=== PATIENT | female | born 1995 | race Caucasian/White ===

== ENCOUNTER 2017-08-17 15:14 | Inpatient (IN) | payer MEDICAID, OTHER ==
[~2017-08-17] VITALS: Ht 160 cm; Wt 68.0 kg
[2017-08-17 15:31] VITALS: BP 112/59; PULSE 69; RESP 18; Ht 160 cm; Wt 68.0 kg
[2017-08-17] MEDS ORDERED: LIDOCAINE 1% (MPF) 30 ML INJ INJ PRN (19:30)
[2017-08-17] MEDS ORDERED: OXYTOCIN 30 UNITS/LR 500 ML IV SCH ×2 (19:30)
[2017-08-17] MEDS ORDERED: MISOPROSTOL 200 MCG TAB PR PRN (19:30)
[2017-08-17] MEDS ORDERED: METHYLERGONOVINE 0.2 MG INJ IM PRN (19:30)
[2017-08-17] MEDS ORDERED: HYDROCODONE/APAP (5/325) TAB PO PRN (19:30)
[2017-08-17] MEDS ORDERED: BUTORPHANOL 2 MG INJ IV PRN ×2 (19:30)
[2017-08-17] MEDS ORDERED: IBUPROFEN 600 MG TAB PO PRN (19:30)
[2017-08-17] MEDS ORDERED: OXYTOCIN 30 UNITS/LR 500 ML IV PRN (19:30)
[2017-08-17] MEDS ORDERED: CARBOPROST 250 MCG INJ IM PRN (19:30)
[2017-08-17] MEDS: LACTATED RINGER'S 1,000 ML IV SCH ×2 (20:31→21:28)
[2017-08-17 20:55] LABS: BASOPHILS % 0.1 % (0.0-2.0); EOSINOPHILS % 0.1 % (0.0-7.0); HEMATOCRIT 36.9 % (37.0-47.0); HEMOGLOBIN 12.9 g/dl (12.0-16.0); LYMPHOCYTES # 1.2 10^3/ul (0.8-2.9); LYMPHOCYTES % 9.2 % (15.0-51.0); MEAN CORPUSCULAR HEMOGLOBIN 30.7 pg (29.0-33.0); MEAN CORPUSCULAR VOLUME 87.9 fl (82.0-101.0); MEAN PLATELET VOLUME 10.1 fl (7.4-10.4); MONOCYTE # 0.6 10^3/ul (0.3-0.9); MONOCYTES % 4.8 % (0.0-11.0); NEUTROPHIL # 11.4 10^3/ul (1.6-7.5); NEUTROPHILS % 85.4 % (39.0-77.0); PLATELET COUNT 202 10^3/UL (140-415); RED CELL DISTRIBUTION WIDTH 15.1 % (11.5-14.5); WHITE BLOOD COUNT 13.3 10^3/ul (4.8-10.8)
[2017-08-17 21:25] LABS: INR 0.83; PROTIME 11.5 Sec (11.9-14.9); PT RATIO 0.9
[2017-08-17] MEDS ORDERED: MINERAL OIL LIGHT 10 ML VIAL TOP ONE (21:30)
[2017-08-17] MEDS ORDERED: FENTAnyl 2MCG/ML-ROPIV 0.2% 100 ML ONE (21:51)
[2017-08-18] MEDS ORDERED: OXYTOCIN 30 UNITS/LR 500 ML IV SCH (00:30)
[2017-08-18] MEDS ORDERED: DEXTROSE 5%-LR 1,000 ML IV PRN (01:30)
[2017-08-18] MEDS: LACTATED RINGER'S 1,000 ML IV SCH (04:28)
[2017-08-18] MEDS ORDERED: HYDROmorphONE 0.5 MG/0.5 ML SYG IV PRN ×2 (04:30)
[2017-08-18] MEDS ORDERED: FENTAnyl 2MCG/ML-ROPIV 0.2% 100 ML BAG EPI SCH (04:30)
[2017-08-18] MEDS ORDERED: ONDANSETRON 4 MG INJ IV PRN (04:30)
[2017-08-18] MEDS ORDERED: KETOROLAC 30 MG INJ IV PRN (04:30)
[2017-08-18] MEDS ORDERED: DIPHENHYDRAMINE 50 MG INJ IV PRN (04:30)
[2017-08-18] MEDS ORDERED: NALOXONE (0.4 MG/ML) INJ IV PRN (04:30)
--- NOTE | 2017-08-18 08:44 | LDN ---
Date/Time of Note Date/Time of Note DATE: 08/18/17 TIME: 08:42 Delivery Summary of a viable baby girl weighing 3120 grams or 6# 14 oz, 20" long, and with Apgars of 9/9. Weeks of Gestation 38w 6d Placenta Delivered: Spontaneously Meconium: Light Episiotomy: No Perineal laceration: 1 Laceration repair: First degree perineal laceration and a left labial laceration repaired with 3-0 chromic. Anesthesia type: Epidural Estimated blood loss: 150 Sponge & Needle done & correct: Yes All needle counts correct: Yes Any foreign bodies felt in the: No (vagina) Problems: Infant Delivery Information Sex Infant Sex: female Apgars 1 Minute: 9 5 Minute: 9 Suctioning Nose & mouth suctioned at kasie: Yes Delee suction performed: No Umbilical Cord Umbilical cord with: 3 Vessels Cord presentations: nuchal cord Nuchal cord present X: 1 Cord Blood was obtained: Yes Mother & Baby Disposition Disposition Mom & Baby to Maternity; Good: Yes Baby to NICU: No ONEYDA MEADOWS MD Aug 18, 2017 08:44
--- NOTE | 2017-08-18 08:49 | HP ---
Date/Time of Note Date/Time of Note DATE: 08/18/17 TIME: 08:44 OB - History Hx of Present Free Text/Dictation 21 y.o. G1 came in active labor and progressed on her own without ever needing pitocin. Chief Complaint: Labor Estimated Due Date: Aug 25, 2017 : 1 Para: 0 Care: Good Care Ultrasounds: Normal mid trimester US Obstetrical Complications: None Medical Complications: None Past Family/Social History * Past Medical, Surgical, Family and Obstetric Histories reviewed from chart. Blood Type: A+ Rubella: immune RPR/VDRL: Negative GBS Status: Negative HBsAG: Negative OB Admission Exam Vital Signs Vital Signs Vital Signs Date Time Temp Pulse Resp B/P Pulse Ox O2 Delivery O2 Flow Rate FiO2 08/17/17 15:31 98.3 69 18 112/59 96 Room Air Physical Exam HEENT: WNL Heart: Rhythm Normal Lungs: Clear Abdomen: WNL Extremities: Normal Reflexes: Normal Cervical Dilatation: 3cm Effacement: 75% Station: -2 Membranes: Intact Heart Rate: 140's Accelerations: Accelerations Present Decelerations: No Decelerations Varibility: Moderate Contractions on Admission: < 5 Minutes Apart Intensity: Moderate Last 72 hourBlood Glucose Bedside Glucose - 72 Hours Test 08/18/17 00:15 08/18/17 02:36 08/18/17 04:33 08/18/17 06:42 Bedside Glucose 75mg/dL (70-220) 101mg/dL (70-220) 75mg/dL (70-220) 99mg/dL (70-220) Last 72 hours Lab Results CBC & BMP 08/17/17 20:20 OB Assessment/Plan Reason for admission: active labor Plan: Expectant Management ONEYDA MEADOWS MD Aug 18, 2017 08:49
[2017-08-18] MEDS ORDERED: MISOPROSTOL 200 MCG TAB PR PRN (09:00)
[2017-08-18] MEDS ORDERED: CARBOPROST 250 MCG INJ IM PRN (09:00)
[2017-08-18] MEDS ORDERED: METHYLERGONOVINE 0.2 MG INJ IM PRN (09:00)
[2017-08-18] MEDS ORDERED: OXYTOCIN 30 UNITS/LR 500 ML IV PRN (09:00)
[2017-08-18] MEDS ORDERED: LANOLIN 7 GM TUBE TOP PRN (09:00)
[2017-08-18] MEDS ORDERED: HYDROCODONE/APAP (5/325) TAB PO PRN (09:00)
[2017-08-18 10:35] VITALS: BP 114/67; PULSE 64; RESP 22
[2017-08-18 12:00] VITALS: BP 111/68; PULSE 66; RESP 18
[2017-08-18] MEDS: IBUPROFEN 600 MG TAB PO SCH ×3 (12:04→23:51)
[2017-08-18] MEDS: LACTATED RINGER'S 1,000 ML IV* SCH ×2 (13:46→16:39)
[2017-08-18] MEDS ORDERED: BENZOCAINE 20% 56 ML SPRAY TOP PRN (14:30)
[2017-08-18] MEDS ORDERED: WITCH HAZEL/GLYCERIN PAD PR PRN (14:30)
[2017-08-18 16:00] VITALS: BP 99/54; PULSE 75; RESP 18
[2017-08-18 20:00] VITALS: BP 97/55; PULSE 80; RESP 18
[2017-08-19 04:27] VITALS: BP 100/55; PULSE 71; RESP 18
[2017-08-19] MEDS: LACTATED RINGER'S 1,000 ML IV* SCH ×2 (04:30→08:39)
[2017-08-19] MEDS: IBUPROFEN 600 MG TAB PO SCH ×4 (05:35→23:36)
[2017-08-19 07:46] LABS: BASOPHILS % 0.1 % (0.0-2.0); EOSINOPHILS # 0.1 10^3/ul (0.0-0.5); EOSINOPHILS % 0.6 % (0.0-7.0); HEMOGLOBIN 10.9 g/dl (12.0-16.0); LYMPHOCYTES # 3.1 10^3/ul (0.8-2.9); LYMPHOCYTES % 26.9 % (15.0-51.0); MEAN CORPUSCULAR HEMOGLOBIN 30.4 pg (29.0-33.0); MEAN CORPUSCULAR HGB CONC 34.1 g/dl (32.0-37.0); MEAN CORPUSCULAR VOLUME 89.1 fl (82.0-101.0); MEAN PLATELET VOLUME 10.1 fl (7.4-10.4); MONOCYTE # 0.9 10^3/ul (0.3-0.9); NEUTROPHIL # 7.4 10^3/ul (1.6-7.5); NEUTROPHILS % 64.1 % (39.0-77.0); PLATELET COUNT 171 10^3/UL (140-415); RED BLOOD COUNT 3.59 10^6/ul (4.20-5.40); RED CELL DISTRIBUTION WIDTH 15.7 % (11.5-14.5); WHITE BLOOD COUNT 11.5 10^3/ul (4.8-10.8)
[2017-08-19 08:10] VITALS: BP 90/58; PULSE 69; RESP 16
--- NOTE | 2017-08-19 15:53 | PN ---
Date/Time of Note Date/Time of Note DATE: 08/19/17 TIME: 15:51 OB Subjective Subjective Subjective no c/o OB Objective Objective Objective vss afebrile fundus firm lochia min calf neg for tendernes OB Assessment/Plan Other Assessment: stable Other plan: d/s home in am REMY LICEA MD Aug 19, 2017 15:53
[2017-08-19 17:49] VITALS: BP 106/55; PULSE 72; RESP 18
[2017-08-19 20:20] VITALS: BP 117/74; PULSE 80; RESP 18
[2017-08-20 05:11] VITALS: BP 110/66; PULSE 66; RESP 18
[2017-08-20] MEDS: LACTATED RINGER'S 1,000 ML IV* SCH ×4 (05:12→14:42)
[2017-08-20] MEDS: IBUPROFEN 600 MG TAB PO SCH ×3 (06:00→17:28)
[2017-08-20 08:00] VITALS: BP 117/70; PULSE 80; RESP 18
[2017-08-20] MEDS ORDERED: DIPHTH/TET/ACEL PERTUSS (ADULT) 0.5 ML VIAL IM* ONE (09:00)
--- NOTE | 2017-08-20 13:24 | PD.PPDC ---
[employer] Discharge Instruction Diagnosis Final Diagnosis: s/p normal vaginal delivery Condition Patient Condition: Good Diet Diet: Special Diet Activity/Restrictions Activity: May Shower Restrictions: No Sexual Activity Nothing in the Vagina No [place] No Tampons, douche Follow-up Follow-up with Physician: 6, Week/Weeks Return to clinic for HOME IM[employer]OVEMENT [employer]OR Instructions: Fever greater than 101 Chills Worsening abdominal pain Excessive Vaginal Bleeding More than 2 pads per hour Unable to tolerate diet OB Instructions: Breast Tenderness Depression Blurried Vision Headache REMY LICEA MD Aug 20, 2017 13:24
--- NOTE | 2017-08-20 13:30 | DS ---
Date/Time of Note Date/Time of Note DATE: 08/20/17 TIME: 13:29 Obstetrical Discharge Record Final Diagnosis Final Diagnosis: Term delivered Vaginal Delivery Obstetrical Delivery: Laceration, Repaired Complications Augmentation: Yes Rupture of Membranes: No Condition on Discharge Physical Assessment Last Vitals: vss afebrile Voiding: Yes Bowel Movement: Yes Breast: Soft, non-tender Fundus: Firm Abdomen and Incision: n/a Calf Tenderness: No Patient Condition: Stable REMY LICEA MD Aug 20, 2017 13:30
[2017-08-20 16:08] VITALS: BP 107/66; PULSE 75; RESP 16
== END 2017-08-20 18:12 | disposition home or self-care (01) | DRG 775 ==
LOC: OBT 15:14 → L-D 15:14 → OBT 19:30 → PP1 08-18 10:44
PROVIDERS: ADMIT Obstetrics & Gynecology; ATTEND Obstetrics & Gynecology
PROC: 10E0XZZ Delivery of Products of Conception, External Approach (ICD-10-PCS; principal; 2017-08-18)
PROC: 0HQ9XZZ Repair Perineum Skin, External Approach (ICD-10-PCS; 2017-08-18)
PROC: 3E033VJ Introduction of Other Hormone into Peripheral Vein, Percutaneous Approach (ICD-10-PCS; 2017-08-18)
DX: O69.81X0 Labor and delivery complicated by cord around neck, without compression, not applicable or unspecified (principal); O70.0 First degree perineal laceration during delivery; Z3A.38 38 weeks gestation of pregnancy; Z37.0 Single live birth
CPT/HCPCS: 62319; 82947; 82962; 85025; 85610; 85730; 86592; 86900; 86901; 87340; 90715; G0463; J0595; J2590; J3010; J7120

== ENCOUNTER 2018-09-16 20:38 | Inpatient (IN) | payer OTHER ==
[~2018-09-16] VITALS: Ht 160 cm; Wt 59.0 kg
[2018-09-16 20:41] VITALS: Ht 160 cm; Wt 59.0 kg
[2018-09-16] MEDS ORDERED: FAMOTIDINE 20 MG TAB PO ONE (21:00)
[2018-09-16] MEDS ORDERED: LIDOCAINE/MYLANTA 40 ML BTL PO ONE (21:00)
[2018-09-16] MEDS ORDERED: SOD CHLORIDE 0.9% 1,000 ML IV ONE (22:30)
--- NOTE | 2018-09-16 22:43 | ERD ---
ER Documentation Chief Complaint Chief Complaint sharp AP x1 day w/ burping/vomiting, worse after eating. no diarrhea/fever HPI 22-year-old female patient with a past medical history of gallstones presents to ED complaining of epigastric pain that started yesterday. Patient reports that she feels like she is burping more frequently as well as having a few episodes of nonbilious nonbloody vomiting. Patient reports that her pain is worse with eating. Denies any fever, chills, nausea, diarrhea, neck stiffness, constipation, dysuria. ROS All systems reviewed and are negative except as per history of present illness. Medications Home Meds Active Scripts Acetaminophen* (Tylophen*) 500 Mg Capsule, 500 MG PO Q6H PRN for PAIN LEVEL 7- 10, #20 TAB Prov:JAYE ISRAEL 09/18/18 Allergies Allergies: Coded Allergies: No Known Allergy (Unverified , 08/17/17) PMhx/Soc Medical and Surgical Hx: pt denies Medical Hx, pt denies Surgical Hx Hx Alcohol Use: No Hx Substance Use: No Hx Tobacco Use: No Smoking Status: Never smoker Physical Exam Vitals Vital Signs Date Temp Pulse Resp B/P (MAP) Pulse Ox O2 O2 Flow FiO2 Time Delivery Rate 09/16/18 98.5 98 16 121/58 97 20:41 (79) Physical Exam Const: [id number], well-nourished. In no acute distress. Head: Atraumatic, normocephalic Eyes: Normal Conjunctiva without injection. No purulent discharge. ENT: Normal external ear, nose. Moist oropharynx without tonsillar exudates. Non-erythematous pharynx. Uvula midline. No drooling. No trismus. Neck: No cervical midline tenderness. Full range of motion. No meningismus. No cervical lymphadenopathy. No JVD. Resp: Clear to auscultation bilaterally. No wheezing, rhonchi, rales, or crackles. No accessory muscle use. No retractions. Cardio: Regular rate and rhythm. No murmurs, rubs or gallops. Abd: Soft, epigastric tenderness, non distended. Normal bowel sounds. No palpable masses. No rebound tenderness. No guarding. Negative McBurney's poi nt. Negative psoas sign. Negative obturator sign. Skin: No petechiae or rashes Back: No midline tenderness. No CVA tenderness. Ext: No cyanosis, or edema. Neur: Awake and alert. Normal gait. Normal coordination. Psych: Normal Mood and Affect Results 24 hrs Laboratory Tests Test 09/16/18 21:00 09/16/18 21:01 Sodium Level 142 mmol/L Potassium Level 3.8 mmol/L Chloride Level 101 mmol/L Carbon Dioxide Level 29 mmol/L Anion Gap 12 Blood Urea Nitrogen 12 mg/dl Creatinine 0.53 mg/dl Est Glomerular Filtrat Rate mL/min > 60 mL/min Glucose Level 92 mg/dl Calcium Level 9.8 mg/dl Total Bilirubin 0.5 mg/dl Direct Bilirubin 0.00 mg/dl Indirect Bilirubin 0.5 mg/dl Aspartate Amino Transf (AST/SGOT) 399 IU/L Alanine Aminotransferase (ALT/SGPT) 199 IU/L Alkaline Phosphatase 191 IU/L Total Protein 7.8 g/dl Albumin 4.7 g/dl Globulin 3.10 g/dl Albumin/Globulin Ratio 1.51 Lipase 12597 U/L White Blood Count 12.4 10^3/ul Red Blood Count 4.59 10^6/ul Hemoglobin 13.9 g/dl Hematocrit 40.4 % Mean Corpuscular Volume 88.0 fl Mean Corpuscular Hemoglobin 30.3 pg Mean Corpuscular Hemoglobin Concent 34.4 g/dl Red Cell Distribution Width 12.8 % Platelet Count 228 10^3/UL Mean Platelet Volume 9.0 fl Immature Granulocytes % 0.200 % Neutrophils % 78.6 % Lymphocytes % 13.8 % Monocytes % 7.0 % Eosinophils % 0.2 % Basophils % 0.2 % Nucleated Red Blood Cells % 0.0 /100WBC Immature Granulocytes # 0.020 10^3/ul Neutrophils # 9.8 10^3/ul Lymphocytes # 1.7 10^3/ul Monocytes # 0.9 10^3/ul Eosinophils # 0.0 10^3/ul Basophils # 0.0 10^3/ul Nucleated Red Blood Cells # 0.0 10^3/ul Urine Color YELLOW Urine Clarity CLEAR Urine pH 6.0 Urine Specific [place] 1.006 Urine Ketones NEGATIVE mg/dL Urine Nitrite NEGATIVE mg/dL Urine Bilirubin NEGATIVE mg/dL Urine Urobilinogen 1+ mg/dL Urine Leukocyte Esterase NEGATIVE Cale/ul Urine Hemoglobin NEGATIVE mg/dL Urine Glucose NEGATIVE mg/dL Urine Total Protein NEGATIVE mg/dl POC Beta HCG, Qualitative NEGATIVE Current Medications Medications Dose Sig/Blaire Start Time Status Last (Trade) Ordered Route PRN Stop Time Admin Dose Reason Admin 40 ml ONCE ONCE 09/16/18 DC 09/16/18 Miscellaneous PO 21:00 09/16/18 21:03 Medication 21:01 (Gi Cocktail (2)) Famotidine 20 mg ONCE ONCE 09/16/18 DC 09/16/18 (Pepcid) PO 21:00 09/16/18 21:03 21:01 Sodium 1,000 ml @ Q1H ONCE 09/16/18 DC 09/16/18 Chloride 1,000 mls/hr IV 22:30 09/16/18 22:31 23:29 Procedures/MDM 22-year-old female patient with a past medical history of gallstones presents to the ED complaining of epigastric pain that started yesterday. Patient is afebrile and nontoxic-appearing. Patient was further worked up with CBC, CMP, lipase, UA, ultrasound. Patient's pain and symptoms have improved after treatment with GI cocktail, 20 m g famotidine. CBC: No leukocytosis. No e/o of systemic infection. No e/o anemia. CMP: No e/o severe acidosis, alkalosis, renal failure, diabetic ketoacidosis Lipase: 75328 AST 199, ALT 399, Alk Phos 191 Urine: No leukocyte esterase, no nitrites, no hematuria. Urine : Negative Patient likely has gallstone pancreatitis. This is my supervising physician, Dr. Adan who agreed with the admission plan. Discussed with patient, patient agreed with admission plan. Patient given 1 L normal saline. Departure Diagnosis: Primary Impression: Gallstone pancreatitis Condition: Stable HANNAH KELSEY PA-C Sep 16, 2018 22:43
[2018-09-17] VITALS (22 sets, daily range): BP systolic 75–121; BP diastolic 52–78; PULSE 69–95; RESP 15–34
[2018-09-17] MEDS ORDERED: morphine 2 MG INJ IV PRN (00:30)
[2018-09-17] MEDS ORDERED: ONDANSETRON 4 MG INJ IV PRN ×4 (00:30→14:30)
[2018-09-17] MEDS: DEXTROSE 5%-0.45% NACL 1,000 ML IV SCH ×5 (00:32→22:12)
--- NOTE | 2018-09-17 00:35 | NUR ---
RN NOTES: Admitted patient to room 424 with Dx of Gall stones, Pancreatitis. This is 22 y/o female with no other medical history. Patient awake, alert and oriented x4, stable hemodynamically, able to make her needs known, ambulatory and independent in ADL. Patient currently in no distress, denies pain,denies nausea or other discomfort. Initial assessment performed, VS taken and recorded accordingly. No skin issues at admission, all the skin clean,dry and intact. MD orders received and carried out. Patient oriented to the unit, safety instructions provided, bed functions explained, call light within reach, instructed to call for assistance. Patient's at bedside, supportive.
[2018-09-17] MEDS ORDERED: morphine SULFATE/PF (2 MG/2 ML) SYG IV PRN ×2 (01:00→06:00)
[2018-09-17] MEDS ORDERED: KETOROLAC 30 MG INJ IV PRN (06:00)
[2018-09-17] MEDS ORDERED: NACL 0.9% 3 ML SYG IV SCH (06:00)
--- NOTE | 2018-09-17 06:35 | HP ---
Date/Time of Note Date/Time of Note DATE: 09/17/18 TIME: 06:33 Assessment/Plan VTE Prophylaxis Pharmacological prophylaxis: heparin Lines/Catheters IV Catheter Type (from Nrsg): Peripheral IV Assessment/Plan Assessment/Plan 1. Gallstone pancreatitis -Keep n.p.o. with IV fluid -MRCP -Pain meds and antiemetics as needed -GI and surgical consult 2. Elevated transaminases: See #1 Result Diagram: 09/16/18 2101 09/16/18 2100 Results 24hrs Laboratory Tests Test 09/16/18 21:00 09/16/18 21:01 09/17/18 05:54 Sodium Level 142 Potassium Level 3.8 Chloride Level 101 Carbon Dioxide Level 29 Anion Gap 12 Blood Urea Nitrogen 12 Creatinine 0.53 Est Glomerular Filtrat Rate mL/min > 60 Glucose Level 92 Calcium Level 9.8 Total Bilirubin 0.5 Direct Bilirubin 0.00 Indirect Bilirubin 0.5 Aspartate Amino Transf (AST/SGOT) 399 H Alanine Aminotransferase (ALT/SGPT) 199 H Alkaline Phosphatase 191 H Total Protein 7.8 Albumin 4.7 Globulin 3.10 Albumin/Globulin Ratio 1.51 Lipase 82258 H White Blood Count 12.4 H Pending Red Blood Count 4.59 # Pending Hemoglobin 13.9 # Pending Hematocrit 40.4 # Pending Mean Corpuscular Volume 88.0 Pending Mean Corpuscular Hemoglobin 30.3 Pending Mean Corpuscular Hemoglobin Concent 34.4 Pending Red Cell Distribution Width 12.8 Pending Platelet Count 228 # Pending Mean Platelet Volume 9.0 Pending Immature Granulocytes % 0.200 Neutrophils % 78.6 H Lymphocytes % 13.8 L Monocytes % 7.0 Eosinophils % 0.2 Basophils % 0.2 Nucleated Red Blood Cells % 0.0 Immature Granulocytes # 0.020 Neutrophils # 9.8 H Lymphocytes # 1.7 Monocytes # 0.9 Eosinophils # 0.0 Basophils # 0.0 Nucleated Red Blood Cells # 0.0 Urine Color YELLOW Urine Clarity CLEAR Urine pH 6.0 Urine Specific [place] 1.006 Urine Ketones NEGATIVE Urine Nitrite NEGATIVE Urine Bilirubin NEGATIVE Urine Urobilinogen 1+ H Urine Leukocyte Esterase NEGATIVE Urine Hemoglobin NEGATIVE Urine Glucose NEGATIVE Urine Total Protein NEGATIVE POC Beta HCG, Qualitative NEGATIVE HPI/ROS Admit Date/Time Admit Date/Time Sep 16, 2018 at 23:14 Hx of Present Illness This is a 22-year-old female with history of gallstones diagnosed about a year ago when she was who presents the ER complaining of abdominal pain. Pain started in the epigastric area, but later on includes right upper quadrant in the periumbilical area. Also reported nausea and nonbloody nonbilious vomiting. And presented to ER, she was found to have severely elevated lipase, 39,000. Also was elevated transaminases with AST of 400, ALT 200. Alk phos 200. RUQ ultrasound shows 2 large shadowing gallstones, the largest measuring 1.9 cm without evidence of cholecystitis or choledocholithiasis. PMH/Family/Social Past Medical History PMH/Family/Social Past Medical History Medical History: other (see hpi) Coded Allergies: No Known Drug Allergy (Verified Allergy, Unknown, 05/03/16) Past Surgical History Past Surgical Hx: other (see hpi) Family History Significant Family History: no pertinent family hx Social History Alcohol Use: other Smoking Status: Unknown if ever smoked Drug Use: other Medications Current Medications Dextrose/Sodium Chloride 1,000 ml @ 100 mls/hr Q10H IV Last administered on 09/17/18at 00:32; Admin Dose 100 MLS/HR; Start 09/17/18 at 00:30 Dextrose/Sodium Chloride 1,000 ml @ 120 mls/hr Q8H20M IV ; Start 09/17/18 at 05:32 IV Flush (NS 3 ml) 3 ml PER PROTOCOL IV ; Start 09/17/18 at 06:00 Ondansetron HCl (Zofran Inj) 4 mg Q6H PRN IV NAUSEA AND/OR VOMITING; Start 09/17/18 at 06:00 Morphine Sulfate (morphine SULFATE (PF)) 2 mg Q4H PRN IV SEVERE PAIN LEVEL 7- 10; Start 09/17/18 at 06:00 Ketorolac Tromethamine (Toradol) 30 mg Q6H PRN IV PAIN LEVEL 1-3; Start 09/17/18 at 06:00; Stop 09/20/18 at 05:59 Coded Allergies: No Known Allergy (Unverified , 08/17/17) Social History Smoking Status: Never smoker Exam/Review of Systems Vital Signs Vitals Vital Signs Date Temp Pulse Resp B/P (MAP) Pulse Ox O2 O2 Flow FiO2 Time Delivery Rate 09/17/18 98.9 74 16 93/53 (66) 99 Room Air 00:20 Intake and Output 09/16/18 09/16/18 09/17/18 1414:59 22:59 06:59 IntakeIntake Total 1400 ml BalanceBalance 1400 ml Exam Constitutional: alert, oriented, well developed Head: normocephalic, atraumatic Eyes: EOMI, PERRL Respiratory: clear to auscultation, normal air movement Cardiovascular: regular rate and rhythm, nl pulses Gastrointestinal: soft, other (Minimal pain elicited in the epigastric, right upper quadrant and in the periumbilical area. No guarding, no rebound tenderness, no rigidity) MANDY RUTLEDGE MD Sep 17, 2018 06:35
--- NOTE | 2018-09-17 09:31 | PN ---
Date/Time of Note Date/Time of Note DATE: 09/17/18 TIME: 09:22 Assessment/Plan VTE Prophylaxis SCD applied (from Nsg): Yes Pharmacological prophylaxis: other Lines/Catheters IV Catheter Type (from Nrsg): Peripheral IV Assessment/Plan Hospital Course S: Patient still with some abdominal pain symptoms. Waiting to be seen by GI and surgery teams. MRCP is pending as well. O: VS - see below PE: Constitutional: alert, oriented, well developed Head: normocephalic, atraumatic Eyes: EOMI, PERRL Respiratory: clear to auscultation, normal air movement Cardiovascular: regular rate and rhythm, nl pulses Gastrointestinal: soft, other (Minimal pain elicited in the epigastric, right upper quadrant and in the periumbilical area. No guarding, no rebound tenderness, no rigidity) Assessment/Plan: 22-year-old female presents with abdominal pain, findings of gallstone pancreatitis. 1. Gallstone pancreatitis -lipase was 39,000 on admission, down to 5000 today. Less abdominal pain symptoms overall, but still present. -Continue to keep n.p.o. with IV fluid -Follow-up results of MRCP, trend lipase levels -Continue pain meds and antiemetics as needed -Follow-up recommendations from GI and surgical consults 2. Elevated transaminases: See #1 -Continue to trend for now. Result Diagram: 09/17/18 0554 09/17/18 0554 Results 24hrs Laboratory Tests Test 09/16/18 21:00 09/16/18 21:01 09/17/18 05:54 Sodium Level 142 142 Potassium Level 3.8 3.6 Chloride Level 101 107 Carbon Dioxide Level 29 25 Anion Gap 12 10 Blood Urea Nitrogen 12 9 Creatinine 0.53 0.47 Est Glomerular Filtrat Rate mL/min > 60 > 60 Glucose Level 92 91 Calcium Level 9.8 8.5 Total Bilirubin 0.5 0.6 Direct Bilirubin 0.00 0.00 Indirect Bilirubin 0.5 0.6 Aspartate Amino Transf (AST/SGOT) 399 H 149 H Alanine Aminotransferase (ALT/SGPT) 199 H 164 H Alkaline Phosphatase 191 H 168 H Total Protein 7.8 6.5 # Albumin 4.7 3.8 Globulin 3.10 2.70 Albumin/Globulin Ratio 1.51 1.40 Lipase 30192 H 5092 H White Blood Count 12.4 H 7.7 # Red Blood Count 4.59 # 4.16 L Hemoglobin 13.9 # 12.7 Hematocrit 40.4 # 36.8 L Mean Corpuscular Volume 88.0 88.5 Mean Corpuscular Hemoglobin 30.3 30.5 Mean Corpuscular Hemoglobin Concent 34.4 34.5 Red Cell Distribution Width 12.8 12.6 Platelet Count 228 # 203 Mean Platelet Volume 9.0 9.2 Immature Granulocytes % 0.200 0.300 Neutrophils % 78.6 H 63.8 Lymphocytes % 13.8 L 28.0 Monocytes % 7.0 6.6 Eosinophils % 0.2 1.2 Basophils % 0.2 0.1 Nucleated Red Blood Cells % 0.0 0.0 Immature Granulocytes # 0.020 0.020 Neutrophils # 9.8 H 4.9 Lymphocytes # 1.7 2.2 Monocytes # 0.9 0.5 Eosinophils # 0.0 0.1 Basophils # 0.0 0.0 Nucleated Red Blood Cells # 0.0 0.0 Urine Color YELLOW Urine Clarity CLEAR Urine pH 6.0 Urine Specific [place] 1.006 Urine Ketones NEGATIVE Urine Nitrite NEGATIVE Urine Bilirubin NEGATIVE Urine Urobilinogen 1+ H Urine Leukocyte Esterase NEGATIVE Urine Hemoglobin NEGATIVE Urine Glucose NEGATIVE Urine Total Protein NEGATIVE POC Beta HCG, Qualitative NEGATIVE Exam/Review of Systems Vital Signs Vitals Vital Signs Date Temp Pulse Resp B/P (MAP) Pulse Ox O2 O2 Flow FiO2 Time Delivery Rate 09/17/18 98.1 69 18 94/55 (68) 99 Room Air 08:15 Intake and Output 09/16/18 09/16/18 09/17/18 1414:59 22:59 06:59 IntakeIntake Total 1400 ml BalanceBalance 1400 ml Medications Medications Current Medications Dextrose/Sodium Chloride 1,000 ml @ 100 mls/hr Q10H IV Last administered on 09/17/18at 00:32; Admin Dose 100 MLS/HR; Start 09/17/18 at 00:30 Dextrose/Sodium Chloride 1,000 ml @ 120 mls/hr Q8H20M IV ; Start 09/17/18 at 05:32 IV Flush (NS 3 ml) 3 ml PER PROTOCOL IV ; Start 09/17/18 at 06:00 Ondansetron HCl (Zofran Inj) 4 mg Q6H PRN IV NAUSEA AND/OR VOMITING; Start 09/17/18 at 06:00 Morphine Sulfate (morphine SULFATE (PF)) 2 mg Q4H PRN IV SEVERE PAIN LEVEL 7- 10; Start 09/17/18 at 06:00 Ketorolac Tromethamine (Toradol) 30 mg Q6H PRN IV PAIN LEVEL 1-3; Start 09/17/18 at 06:00; Stop 09/20/18 at 05:59 JAYE ISRAEL Sep 17, 2018 09:31
--- NOTE | 2018-09-17 11:03 | CONS ---
Date/Time of Note Date/Time of Note DATE: 09/17/18 TIME: 10:47 Assessment/Plan Assessment/Plan Hospital Course Summary Assessment and Plan: Assessment: Acute pancreatitis, gallstone Elevated aminotransferase- trending down -Normal Bilirubin Cholelithiasis Plan: Strict NPO Push IVF MRCP-pending- if positive will proceed with ERCP when pancreatitis improves/resolved Monitor labs Further rec based on clinical course Patient seen in collaboration with Dr. Horn Result Diagram: 09/17/18 0554 09/17/18 0554 Results 24hrs Laboratory Tests Test 09/16/18 21:00 09/16/18 21:01 09/17/18 05:54 Sodium Level 142 142 Potassium Level 3.8 3.6 Chloride Level 101 107 Carbon Dioxide Level 29 25 Anion Gap 12 10 Blood Urea Nitrogen 12 9 Creatinine 0.53 0.47 Est Glomerular Filtrat Rate mL/min > 60 > 60 Glucose Level 92 91 Calcium Level 9.8 8.5 Total Bilirubin 0.5 0.6 Direct Bilirubin 0.00 0.00 Indirect Bilirubin 0.5 0.6 Aspartate Amino Transf (AST/SGOT) 399 H 149 H Alanine Aminotransferase (ALT/SGPT) 199 H 164 H Alkaline Phosphatase 191 H 168 H Total Protein 7.8 6.5 # Albumin 4.7 3.8 Globulin 3.10 2.70 Albumin/Globulin Ratio 1.51 1.40 Lipase 86031 H 5092 H White Blood Count 12.4 H 7.7 # Red Blood Count 4.59 # 4.16 L Hemoglobin 13.9 # 12.7 Hematocrit 40.4 # 36.8 L Mean Corpuscular Volume 88.0 88.5 Mean Corpuscular Hemoglobin 30.3 30.5 Mean Corpuscular Hemoglobin Concent 34.4 34.5 Red Cell Distribution Width 12.8 12.6 Platelet Count 228 # 203 Mean Platelet Volume 9.0 9.2 Immature Granulocytes % 0.200 0.300 Neutrophils % 78.6 H 63.8 Lymphocytes % 13.8 L 28.0 Monocytes % 7.0 6.6 Eosinophils % 0.2 1.2 Basophils % 0.2 0.1 Nucleated Red Blood Cells % 0.0 0.0 Immature Granulocytes # 0.020 0.020 Neutrophils # 9.8 H 4.9 Lymphocytes # 1.7 2.2 Monocytes # 0.9 0.5 Eosinophils # 0.0 0.1 Basophils # 0.0 0.0 Nucleated Red Blood Cells # 0.0 0.0 Urine Color YELLOW Urine Clarity CLEAR Urine pH 6.0 Urine Specific [place] 1.006 Urine Ketones NEGATIVE Urine Nitrite NEGATIVE Urine Bilirubin NEGATIVE Urine Urobilinogen 1+ H Urine Leukocyte Esterase NEGATIVE Urine Hemoglobin NEGATIVE Urine Glucose NEGATIVE Urine Total Protein NEGATIVE POC Beta HCG, Qualitative NEGATIVE CC: DARELL HORN ; Consultation Date/Type/Reason Admit Date/Time Sep 16, 2018 at 23:14 Date of Consultation: Sep 17, 2018 Type of Consult GI Reason for Consultation Elevated LFTs Pancreatitis, gallstone Hx of Present Illness This is a 22-year-old female with no significant past medical history who presented to the hospital with planes of upper abdominal pain times 2 days associated with nausea and nonbloody vomiting. She initially tried to treat her abdominal pain with Tums and ibuprofen/Advil however pain progressed and she came to ED for further evaluation. Upon workup [place] [address] as well as elevated AST 399, ALT 199, Alk Phos 168. An abdominal ultrasound was ordered showing 2 large shadowing gallstones, largest measuring 1.9 cm without evidence of cholecystitis or choledocholithiasis, otherwise normal sonographic findings of the right upper quadrant. MRCP was ordered patient has just returned from MRI therefore results are currently pending at time evaluation patient states she feels a little bit better pain is about a 5 out of 10 no further episodes of nausea vomiting she denies melena, diarrhea, or hematochezia. Review of Systems: A 12 system, review was conducted and is negative except as noted in the HPI or here. Past Medical History Medications Current Medications Dextrose/Sodium Chloride 1,000 ml @ 100 mls/hr Q10H IV Last administered on 09/17/18at 00:32; Admin Dose 100 MLS/HR; Start 09/17/18 at 00:30 Dextrose/Sodium Chloride 1,000 ml @ 120 mls/hr Q8H20M IV ; Start 09/17/18 at 0 5:32 IV Flush (NS 3 ml) 3 ml PER PROTOCOL IV ; Start 09/17/18 at 06:00 Ondansetron HCl (Zofran Inj) 4 mg Q6H PRN IV NAUSEA AND/OR VOMITING; Start 09/17/18 at 06:00 Morphine Sulfate (morphine SULFATE (PF)) 2 mg Q4H PRN IV SEVERE PAIN LEVEL 7- 10; Start 09/17/18 at 06:00 Ketorolac Tromethamine (Toradol) 30 mg Q6H PRN IV PAIN LEVEL 1-3; Start 09/17/18 at 06:00; Stop 09/20/18 at 05:59 Allergies: Coded Allergies: No Known Allergy (Unverified , 08/17/17) Social History Smoking Status: Never smoker Exam/Review of Systems Vital Signs Vitals Vital Signs Date Temp Pulse Resp B/P (MAP) Pulse Ox O2 O2 Flow FiO2 Time Delivery Rate 09/17/18 98.1 69 18 94/55 (68) 99 Room Air 08:15 Intake and Output 09/16/18 09/16/18 09/17/18 1515:00 23:00 07:00 IntakeIntake Total 1400 ml BalanceBalance 1400 ml Exam PHYSICAL EXAMINATION: GENERAL: Well developed, well nourished, alert & oriented x 3, in no acute distress SKIN: No lesions EYES: Pupils equal reactive to light, no discharge. EARS/NOSE AND THROAT: Ears normal, nose normal, oropharynx normal. NECK: Supple, no masses CARDIOVASCULAR: Heart: Regular rate and rhythm, RESPIRATORY: Lungs clear to auscultation and percussion, no wheezing, no rubs GASTROINTESTINAL AND LIVER: Abdomen: Soft, abdominal pain, non-distended, no hernias, no masses, no organomegaly, no ascites, no guarding, no rebound tenderness, normoactive bowel sounds. Rectal: Deferred. Medications Medications Current Medications Dextrose/Sodium Chloride 1,000 ml @ 100 mls/hr Q10H IV Last administered on 09/17/18at 00:32; Admin Dose 100 MLS/HR; Start 09/17/18 at 00:30 Dextrose/Sodium Chloride 1,000 ml @ 120 mls/hr Q8H20M IV ; Start 09/17/18 at 05:32 IV Flush (NS 3 ml) 3 ml PER PROTOCOL IV ; Start 09/17/18 at 06:00 Ondansetron HCl (Zofran Inj) 4 mg Q6H PRN IV NAUSEA AND/OR VOMITING; Start 09/17/18 at 06:00 Morphine Sulfate (morphine SULFATE (PF)) 2 mg Q4H PRN IV SEVERE PAIN LEVEL 7- 10; Start 09/17/18 at 06:00 Ketorolac Tromethamine (Toradol) 30 mg Q6H PRN IV PAIN LEVEL 1-3; Start 09/17/18 at 06:00; Stop 09/20/18 at 05:59 GAYLE JIMENEZ Sep 17, 2018 10:57
[2018-09-17] MEDS ORDERED: BUPIVACAINE 0.25% (MPF) 30 ML INJ ONE (12:53)
[2018-09-17] MEDS ORDERED: TRIMETHOBENZAMIDE 100 MG/ML VIAL IM PRN (13:30)
[2018-09-17] MEDS ORDERED: MIDAZOLAM 1 MG/ML 2 ML INJ IV PRN (13:30)
[2018-09-17] MEDS ORDERED: ALBUTEROL 0.083% (NEB) 2.5 MG/3 ML AMP HHN PRN (13:30)
[2018-09-17] MEDS ORDERED: FENTAnyl 50 MCG/ML VIAL IV PRN ×3 (13:30)
[2018-09-17] MEDS ORDERED: hydrALAzine 20 MG INJ IV PRN (13:30)
[2018-09-17] MEDS ORDERED: EPHEDrine SULFATE 50 MG/5 ML SYG IV PRN (13:30)
[2018-09-17] MEDS ORDERED: DIPHENHYDRAMINE 50 MG INJ IV PRN (13:30)
[2018-09-17] MEDS ORDERED: LABETALOL HCL 20MG INJ IV PRN (13:30)
[2018-09-17] MEDS ORDERED: OXYCODONE/ACETAMINOPHEN (5/325) TAB PO PRN ×4 (13:30→14:30)
[2018-09-17] MEDS ORDERED: IPRATROPIUM (NEB) 0.5 MG/2.5 ML AMP HHN PRN (13:30)
[2018-09-17] MEDS ORDERED: HYDROmorphONE 1 MG/5 ML IV SYRINGE IV PRN ×3 (13:30)
[2018-09-17] MEDS ORDERED: MEPERIDINE 25 MG INJ IV PRN (13:30)
[2018-09-17] MEDS ORDERED: ROCURONIUM 50 MG INJ ONE (13:31)
[2018-09-17] MEDS ORDERED: CEFAZOLIN 1 GM INJ ONE (13:31)
[2018-09-17] MEDS ORDERED: PROPOFOL 20 ML ONE (13:31)
[2018-09-17] MEDS ORDERED: GLYCOPYRROLATE 0.4 MG INJ ONE (13:31)
[2018-09-17] MEDS ORDERED: NEOSTIGMINE 3 MG/3 ML SYRINGE ONE (13:31)
--- NOTE | 2018-09-17 13:31 | PREAC ---
Date/Time of Note Date/Time of Note DATE: 09/17/18 TIME: 13:30 Anesthesia Eval and Record Evaluation Time Pre-Procedure Interview DATE: 09/17/18 TIME: 13:30 Age 22 Sex female NPO: 8 hrs Preoperative diagnosis symptomatic cholelithiasis Planned procedure lap shasha Past Medical History Past Medical History: None Surgery & Anesthesia Issues No known issue Meds Anticoagulation: No Beta Edmond within 24 hr: No Reason Beta Edmond not given: Pt. not on B-Edmond Current Medications Dextrose/Sodium Chloride 1,000 ml @ 100 mls/hr Q10H IV Last administered on 09/17/18at 11:06; Admin Dose 100 MLS/HR; Start 09/17/18 at 00:30 Dextrose/Sodium Chloride 1,000 ml @ 120 mls/hr Q8H20M IV ; Start 09/17/18 at 05:32 IV Flush (NS 3 ml) 3 ml PER PROTOCOL IV ; Start 09/17/18 at 06:00 Ondansetron HCl (Zofran Inj) 4 mg Q6H PRN IV NAUSEA AND/OR VOMITING; Start 09/17/18 at 06:00 Morphine Sulfate (morphine SULFATE (PF)) 2 mg Q4H PRN IV SEVERE PAIN LEVEL 7- 10; Start 09/17/18 at 06:00 Ketorolac Tromethamine (Toradol) 30 mg Q6H PRN IV PAIN LEVEL 1-3; Start 09/17/18 at 06:00; Stop 09/20/18 at 05:59 Meds reviewed: Yes Allergies Coded Allergies: No Known Allergy (Unverified , 08/17/17) Allergies Reviewed: Yes Labs/Studies Labs Reviewed: Reviewed by anesthesiologist Result Diagram: 09/17/18 0554 09/17/18 0554 Laboratory Tests 09/17/18 05:54 test: Negative Pre-procedure Exam Last vitals Vital Signs Date Temp Pulse Resp B/P (MAP) Pulse Ox O2 O2 Flow FiO2 Time Delivery Rate 09/17/18 98.1 69 18 94/55 (68) 99 Room Air 08:15 Airway: Adequate mouth opening, Adequate thyromental dist Mallampati: Mallampati II Teeth: Normal Lung: Normal Heart: Normal ASA Physical Status ASA physical status: 1 Emergency: None Planned Anesthetic General/MAC: ETT Pre-operative Attestations Prior to commencing anesthesia and surgery, the patient was re-evaluated, there was verification of: *The patient's identity *The results of appropriate recent lab work and preoperative vital signs *The above evaluation not changing prior to induction *Anesthetic plan, risk benefits, alternative and complications discussed with patient/family; questions answered; patient/family understands, accepts and wishes to proceed. Barron Peralta M.D. Sep 17, 2018 13:31
--- NOTE | 2018-09-17 13:31 | CONS ---
Date/Time of Note Date/Time of Note DATE: 09/17/18 TIME: 13:28 Assessment/Plan Assessment/Plan Assessment/Plan Biliary pancreatitis with rapidly resolving pancreatitis. MRCP shows no evidence of choledocholithiasis. Laparoscopic cholecystectomy, possible open is recommended. I have discussed the procedure, outcomes, expectations alternatives and risks in detail with the patient who has an excellent understanding of the nature of her situation and agrees to the proposed plan of therapy as outlined. Result Diagram: 09/17/18 0554 09/17/18 0554 Results 24hrs Laboratory Tests Test 09/16/18 21:00 09/16/18 21:01 09/17/18 05:54 Sodium Level 142 142 Potassium Level 3.8 3.6 Chloride Level 101 107 Carbon Dioxide Level 29 25 Anion Gap 12 10 Blood Urea Nitrogen 12 9 Creatinine 0.53 0.47 Est Glomerular Filtrat Rate mL/min > 60 > 60 Glucose Level 92 91 Calcium Level 9.8 8.5 Total Bilirubin 0.5 0.6 Direct Bilirubin 0.00 0.00 Indirect Bilirubin 0.5 0.6 Aspartate Amino Transf (AST/SGOT) 399 H 149 H Alanine Aminotransferase (ALT/SGPT) 199 H 164 H Alkaline Phosphatase 191 H 168 H Total Protein 7.8 6.5 # Albumin 4.7 3.8 Globulin 3.10 2.70 Albumin/Globulin Ratio 1.51 1.40 Lipase 60702 H 5092 H White Blood Count 12.4 H 7.7 # Red Blood Count 4.59 # 4.16 L Hemoglobin 13.9 # 12.7 Hematocrit 40.4 # 36.8 L Mean Corpuscular Volume 88.0 88.5 Mean Corpuscular Hemoglobin 30.3 30.5 Mean Corpuscular Hemoglobin Concent 34.4 34.5 Red Cell Distribution Width 12.8 12.6 Platelet Count 228 # 203 Mean Platelet Volume 9.0 9.2 Immature Granulocytes % 0.200 0.300 Neutrophils % 78.6 H 63.8 Lymphocytes % 13.8 L 28.0 Monocytes % 7.0 6.6 Eosinophils % 0.2 1.2 Basophils % 0.2 0.1 Nucleated Red Blood Cells % 0.0 0.0 Immature Granulocytes # 0.020 0.020 Neutrophils # 9.8 H 4.9 Lymphocytes # 1.7 2.2 Monocytes # 0.9 0.5 Eosinophils # 0.0 0.1 Basophils # 0.0 0.0 Nucleated Red Blood Cells # 0.0 0.0 Urine Color YELLOW Urine Clarity CLEAR Urine pH 6.0 Urine Specific [place] 1.006 Urine Ketones NEGATIVE Urine Nitrite NEGATIVE Urine Bilirubin NEGATIVE Urine Urobilinogen 1+ H Urine Leukocyte Esterase NEGATIVE Urine Hemoglobin NEGATIVE Urine Glucose NEGATIVE Urine Total Protein NEGATIVE POC Beta HCG, Qualitative NEGATIVE Consultation Date/Type/Reason Admit Date/Time Sep 16, 2018 at 23:14 Date of Consultation: Sep 17, 2018 Type of Consult General surgery Reason for Consultation Biliary pancreatitis Hx of Present Illness The patient is a otherwise healthy 22-year-old female who is 13 months post . She was found to have gallstones during her . She has never undergone treatment now she is admitted with gallstone pancreatitis. MRCP has been performed and shows no evidence of choledocholithiasis. Furthermore her lipase has come down dramatically to 5000. I have been asked to see the patient in regards to laparoscopic cholecystectomy. She has had no fevers, chills or jaundice. Constitutional: no complaints Eyes: no complaints ENT: no complaints Cardiovascular: no complaints Gastrointestinal: pain (Epigastrium) Genitourinary: no complaints Musculoskeletal: no complaints Skin: no complaints Neurologic: no complaints Endocrine: no complaints Lymphatic: no complaints Past Medical History Medical History: gallstones Medications Current Medications Dextrose/Sodium Chloride 1,000 ml @ 100 mls/hr Q10H IV Last administered on 09/17/18at 11:06; Admin Dose 100 MLS/HR; Start 09/17/18 at 00:30 Dextrose/Sodium Chloride 1,000 ml @ 120 mls/hr Q8H20M IV ; Start 09/17/18 at 05:32 IV Flush (NS 3 ml) 3 ml PER PROTOCOL IV ; Start 09/17/18 at 06:00 Ondansetron HCl (Zofran Inj) 4 mg Q6H PRN IV NAUSEA AND/OR VOMITING; Start 09/17/18 at 06:00 Morphine Sulfate (morphine SULFATE (PF)) 2 mg Q4H PRN IV SEVERE PAIN LEVEL 7- 10; Start 09/17/18 at 06:00 Ketorolac Tromethamine (Toradol) 30 mg Q6H PRN IV PAIN LEVEL 1-3; Start 09/17/18 at 06:00; Stop 09/20/18 at 05:59 Allergies: Coded Allergies: No Known Allergy (Unverified , 08/17/17) Past Surgical History Past Surgical Hx: no surgical history Family History Significant Family History: no pertinent family hx Social History Alcohol Use: none Smoking Status: Never smoker Exam/Review of Systems Vital Signs Vitals Vital Signs Date Temp Pulse Resp B/P (MAP) Pulse Ox O2 O2 Flow FiO2 Time Delivery Rate 09/17/18 98.1 69 18 94/55 (68) 99 Room Air 08:15 Intake and Output 09/16/18 09/16/18 09/17/18 1515:00 23:00 07:00 IntakeIntake Total 1400 ml BalanceBalance 1400 ml Exam Constitutional: alert, oriented Psych: no complaints Head: normocephalic Eyes: nl conjunctiva ENMT: nl external ears & nose Neck: supple Respiratory: clear to auscultation Cardiovascular: regular rate and rhythm Gastrointestinal: soft, tender (Epigastrium) Genitourinary - Female: nl adnexae Musculoskeletal: nl extremities to inspection Extremities: normal pulses Medications Medications Current Medications Dextrose/Sodium Chloride 1,000 ml @ 100 mls/hr Q10H IV Last administered on 09/17/18at 11:06; Admin Dose 100 MLS/HR; Start 09/17/18 at 00:30 Dextrose/Sodium Chloride 1,000 ml @ 120 mls/hr Q8H20M IV ; Start 09/17/18 at 05:32 IV Flush (NS 3 ml) 3 ml PER PROTOCOL IV ; Start 09/17/18 at 06:00 Ondansetron HCl (Zofran Inj) 4 mg Q6H PRN IV NAUSEA AND/OR VOMITING; Start 09/17/18 at 06:00 Morphine Sulfate (morphine SULFATE (PF)) 2 mg Q4H PRN IV SEVERE PAIN LEVEL 7- 10; Start 09/17/18 at 06:00 Ketorolac Tromethamine (Toradol) 30 mg Q6H PRN IV PAIN LEVEL 1-3; Start 09/17/18 at 06:00; Stop 09/20/18 at 05:59 LAYLA PAZ MD Sep 17, 2018 13:31
[2018-09-17] MEDS ORDERED: ONDANSETRON 4 MG INJ ONE (13:34)
[2018-09-17] MEDS ORDERED: FENTAnyl 50 MCG/ML VIAL ONE ×2 (13:34→13:54)
[2018-09-17] MEDS ORDERED: DEXAMETHASONE 4 MG/ML 1 ML INJ ONE (13:34)
[2018-09-17] MEDS ORDERED: MIDAZOLAM 1 MG/ML 2 ML INJ ONE (13:34)
[2018-09-17] MEDS ORDERED: morphine 4 MG/ML VIAL IV PRN (14:30)
--- NOTE | 2018-09-17 14:30 | NUR ---
PACU: Received patient in pacu via frieda s/l brandon pulliam, AAOx3 vss HOB @ semi castellanos position, breathing with ease, dressings dry & intact x4 band- aids denies pain at this time. will continue to monitor.
--- NOTE | 2018-09-17 14:33 | OPR ---
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 Estimated Blood Loss: minimal Transfusion none Specimen Gallbladder Grafts/Implants none Tubes/Drains None Complications none Pt Condition Post Procedure: stable Disposition: PACU Indications Biliary pancreatitis Procedure Description After satisfactory general endotracheal anesthesia was achieved, the abdomen was prepped and draped in usual fashion. The abdomen was insufflated with carbon dioxide through an umbilical Veress needle to 15 mmHg pressure. The Veress needle was removed and the umbilical incision extended to 5 mm through which a 5 mm trocar was placed. A 5 mm 0 degree lens was placed. Laparoscopy showed a distended an uninflamed gallbladder. Under direct visualization an 11 mm epigastric trocar was placed as well as 2 more 5 mm right lateral abdominal trochars. The dome of the gallbladder was grasped and retracted superiorly. Sandra's pouch was grasped and retracted inferolaterally. The hepatoduodenal ligament was carefully dissected between the gallbladder and the well-visualized bonnie hepatis. The cystic duct was dissected circumferentially then triply he moclipped and divided high at the junction of the gallbladder and the cystic duct. The cystic artery was identified above the node of Calot and was minuscule at 1 mm. It was divided with electrocautery. The gallbladder was then dissected from the liver bed using electrocautery dissection and placed fully intact into an Endo Catch removed via the epigastric port site. Hemostasis of the liver bed was total and irrigant returned clear. The abdomen was then desufflated and all trochars were removed. The fascia of the epigastrium was closed with a single suture of 0 Vicryl. The skin punctures were infiltrated with 30 cc of 0.25% Marcaine with epinephrine and closed with sam. Sponge and needle counts were reported as correct x2. LAYLA PAZ MD Sep 17, 2018 14:33
--- NOTE | 2018-09-17 15:44 | NUR ---
PACU : Transferred patient back to the room via Violette malave HOB @ semi castellanos position, breathing with ease, dressings dry & intact x4 band- aids denies pain. Report given to ZAKI Estrada
--- NOTE | 2018-09-17 15:55 | NUR ---
NURSING NOTE: PATIENT ARRIVED BACK ON FLOOR INTO ROOM 424 AT 1555. REPORT RECEIVED FROM KAELA HAINES IN PACU. PATIENT ALERT AND ORIENTATED. VSS. SURGICAL SITES INTACT COVERED IN BANDAIDS. FALL PRECAUTIONS OBSERVED, WILL CONTINUE TO MONITOR.
--- NOTE | 2018-09-17 19:00 | NUR ---
END OF SHIFT: PATIENT RESTING IN BED. PATIENT DENIED NEED FOR PAIN MEDICATIONS POST OP, PATIENT RECEIVED PAIN MEDICATIONS IN PACU. PATIENT COMPLAINING OF GAS PAIN, PATIENT ENCOURAGED TO AMBULATE. PATIENT VOIDED POST OP. SURGICAL SITES INTACT W/ BANDAIDS, SCANT AMT DRAINAGE. PATIENTS 1 YEAR OLD DAUGHTER VISITED, PATIENT ASKED ABOUT , EDUCATED PATIENT ON MEDICATIONS GIVEN DURING SX AND PAIN MEDICATIONS, AND HOW THOSE MEDICATIONS AFFECT BREAST MILK. VSS. HOURLY ROUNDING DONE DURING SHIFT, CALL LEWIS WITHIN REACH, FALL PRECAUTIONS OBSERVED, WILL ENDORSE TO NIGHT RN.
[2018-09-18 00:03] VITALS: BP 102/64; PULSE 67; RESP 18
[2018-09-18 07:43] VITALS: BP 96/55; PULSE 70; RESP 18
--- NOTE | 2018-09-18 09:18 | QN ---
Documentation Comment Postoperative day #1 Markedly symptomatically improved Abdominal examination is benign Plan: Patient is cleared for discharge. Will see in office in 1 week for staple removal LAYLA PAZ MD Sep 18, 2018 09:18
--- NOTE | 2018-09-18 09:29 | PDOCDIS ---
Discharge Instructions CONDITION [id number] Patient Condition: [id number] Stable HOME CARE INSTRUCTIONS: [id number] Diet Instructions: [id number] Low Fat /Cholesterol ACTIVITY: [id number] Activity Restrictions: [id number] Slowly Increase Activity Rest between Activity Avoid heavy lifting FOLLOW UP/APPOINTMENTS Follow-up Plan Please take your medications as prescribed. Please see your doctor in the clinic in the next 1 week. JAYE ISRAEL Sep 18, 2018 09:29
[2018-09-18] MEDS ORDERED: ACET500C5 PO (09:30)
--- NOTE | 2018-09-18 09:33 | DS ---
Date/Time of Note Date/Time of Note DATE: 09/18/18 TIME: 09:30 Discharge Summary Admission/Discharge Info Admit Date/Time Sep 16, 2018 at 23:14 Discharge Date/Time Discharge Diagnosis 1. Gallstone pancreatitis -resolved now, status post laparoscopic cholecystect evette. 2. Elevated transaminases: Secondary to #1, improving now Patient Condition: Stable Procedures Date/Time of Note Date/Time of Note DATE: 09/17/18 TIME: 14:29 Operative Report Procedure Date: Sep 17, 2018 Preoperative Diagnosis Resolving biliary pancreatitis Postoperative Diagnosis Resolving biliary pancreatitis Operation/Procedure Performed Laparoscopic cholecystectomy MRCP: IMPRESSION: 1. Gallstones in the gallbladder lumen without evidence of cholecystitis. 2. Minimal central intrahepatic biliary ductal dilatation without extrahepatic biliary ductal dilatation. No filling defects along the course of the common bile duct to represent choledocholithiasis. Hx of Present Illness 22-year-old female with history of gallstones diagnosed about a year ago when she was who presents the ER complaining of abdominal pain. Pain started in the epigastric area, but later on includes right upper quadrant in the periumbilical area. Also reported nausea and nonbloody nonbilious vomiting. And presented to ER, she was found to have severely elevated lipase, 39,000. Also was elevated transaminases with AST of 400, ALT 200. Alk phos 200. RUQ ultrasound shows 2 large shadowing gallstones, the largest measuring 1.9 cm without evidence of cholecystitis or choledocholithiasis. Hospital Course So patient was admitted. She was seen by both GI and surgery teams during this hospital stay. She underwent MRCP. She was made n.p.o. initially given IV fluids and pain control medications. Her lipase started to trend down. She underwent laparoscopic cholecystectomy, and tolerated the procedure well. Her lipase was normal on the day of discharge. Ambulate afterwards, tolerated p.o. diet. After getting clearance from the data consultant teams she will be discharged home today in improved condition. See below for full list of discharge medications. Home Meds Active Scripts Acetaminophen* (Tylophen*) 500 Mg Capsule, 500 MG PO Q6H PRN for PAIN LEVEL 7- 10, #20 TAB Prov:JAYE ISRAEL 09/18/18 Follow-up Plan Please take your medications as prescribed. Please see your doctor in the clinic in the next 1 week. Primary Care Provider Graham Avila MD Time spent on discharge: > 30 minutes Pending Labs Laboratory Tests Test 09/18/18 04:22 09/18/18 04:23 White Blood Count 10.9 10^3/ul (4.8-10.8) Red Blood Count 3.99 10^6/ul (4.20-5.40) Hemoglobin 12.3 g/dl (12.0-16.0) Hematocrit 35.8 % (37.0-47.0) Mean Corpuscular Volume 89.7 fl (82.0-101.0) Mean Corpuscular Hemoglobin 30.8 pg (29.0-33.0) Mean Corpuscular 34.4 g/dl (32.0-37.0) Hemoglobin Concent Red Cell Distribution Width 12.8 % (11.5-14.5) Platelet Count 212 10^3/UL (140-415) Mean Platelet Volume 9.5 fl (7.4-10.4) Immature Granulocytes % 0.300 % (0.001-0.429) Neutrophils % 82.6 % (39.0-77.0) Lymphocytes % 10.6 % (15.0-51.0) Monocytes % 6.4 % (0.0-11.0) Eosinophils % 0.0 % (0.0-7.0) Basophils % 0.1 % (0.0-2.0) Nucleated Red Blood Cells % 0.0 /100WBC (0.0-0.0) Immature Granulocytes # 0.030 10^3/ul (0.0-0.031) Neutrophils # 9.0 10^3/ul (1.6-7.5) Lymphocytes # 1.2 10^3/ul (0.8-2.9) Monocytes # 0.7 10^3/ul (0.3-0.9) Eosinophils # 0.0 10^3/ul (0.0-0.5) Basophils # 0.0 10^3/ul (0.0-0.1) Nucleated Red Blood Cells # 0.0 10^3/ul (0.0-0.0) Sodium Level 138 mmol/L (135-144) Potassium Level 4.2 mmol/L (3.5-5.1) Chloride Level 108 mmol/L (97-110) Carbon Dioxide Level 24 mmol/L (21-31) Anion Gap 6 (5-13) Blood Urea Nitrogen 7 mg/dl (7-20) Creatinine 0.49 mg/dl (0.44-1.00) Est Glomerular Filtrat > 60 mL/min (>60) Rate mL/min Glucose Level 161 mg/dl (70-220) Calcium Level 8.7 mg/dl (8.4-10.2) Total Bilirubin 0.2 mg/dl (0.2-1.3) Direct Bilirubin 0.00 mg/dl (0.00-0.20) Indirect Bilirubin 0.2 mg/dl (0-1.1) Aspartate Amino 70 IU/L (15-46) Transf (AST/SGOT) Alanine 124 IU/L (13-69) Aminotransferase (ALT/SGPT) Alkaline Phosphatase 177 IU/L (42-121) Total Protein 7.0 g/dl (6.1-8.1) Albumin 3.7 g/dl (3.3-4.9) Globulin 3.30 g/dl (1.3-3.2) Albumin/Globulin Ratio 1.12 Lipase 263 U/L (23-300) Phosphorus Level 3.2 mg/dl (2.5-4.9) Magnesium Level 2.1 mg/dl (1.7-2.5) JAYE ISRAEL Sep 18, 2018 09:33
--- NOTE | 2018-09-18 10:48 | PAC ---
Date/Time of Note Date/Time of Note DATE: 09/18/18 TIME: 10:48 Post-Anesthesia Notes Post-Anesthesia Note Last documented vital signs Vital Signs Date Temp Pulse Resp B/P (MAP) Pulse Ox O2 O2 Flow FiO2 Time Delivery Rate 09/18/18 97.8 70 18 96/55 (69) 98 Room Air 07:43 09/17/18 8.0 14:46 Activity: WNL Respiratory function: WNL Cardiovascular function: WNL Mental status: Baseline Pain reasonably controlled: Yes Hydration appropriate: Yes Nausea/Vomiting absent: Yes Barron Peralta M.D. Sep 18, 2018 10:48
[2018-09-18 14:18] VITALS: BP 98/54; PULSE 101; RESP 16
--- NOTE | 2018-09-18 15:15 | NUR ---
Discharge: Pt discharged in wheelchair with volunteer to family member in car. Pt discharged with all personal belongings. Pt received discharge instructions, patient health summary, instructions for follow-up and [facility]. Pt verbalized understanding. Pt discharged with prescriptions and doctor's note from Dr. Raza that she can return to work. IV removed, no issues. Pt stable at discharge, A&Ox4.
== END 2018-09-18 15:15 | disposition home or self-care (01) | DRG 419 ==
LOC: FTE 20:38 → MS1 23:14
PROVIDERS: ADMIT Internal Medicine; ATTEND Hospitalist
PROC: 0FT44ZZ Resection of Gallbladder, Percutaneous Endoscopic Approach (ICD-10-PCS; principal; 2018-09-17 14:00)
DX: K85.10 Biliary acute pancreatitis without necrosis or infection (principal); R74.0 Nonspecific elevation of levels of transaminase and lactic acid dehydrogenase [LDH]
CPT/HCPCS: 36415; 74181; 76705; 80053; 81003; 81025; 83690; 83735; 84100; 85025; 88304; 96360; J0690; J1100; J1170; J2250; J2405; J2710; J3010; J7030; J7042